=== PATIENT | male | born 1960 | race Caucasian/White ===

== ENCOUNTER 2019-06-28 21:38 | Emergency (ER) | payer MEDICARE ==
[~2019-06-28] VITALS: Ht 177.8 cm; Wt 100.0 kg
[2019-06-29 01:55] VITALS: BP 121/79
== END 2019-06-29 01:57 | disposition home or self-care (01) ==
LOC: ER 21:38
DX: T40.7X1A Poisoning by cannabis (derivatives), accidental (unintentional), initial encounter (principal); E11.9 Type 2 diabetes mellitus without complications; Y92.018 Other place in single-family (private) house as the place of occurrence of the external cause
CPT/HCPCS: 82962; 99283